=== PATIENT | female | born 1935 | race Caucasian/White ===

== ENCOUNTER 2024-08-06 15:35 | Emergency (ER) | payer MEDICARE, BC ==
[2024-08-06] MEDS ORDERED: SIMVASTATIN40 M1 PO (16:09)
[2024-08-06] MEDS ORDERED: CLOPIDOGREL PO (16:09)
[2024-08-06] MEDS ORDERED: PRILOSEC 20MG20 MG PO (16:09)
[2024-08-06] MEDS ORDERED: DONEPEZIL HCL10 MG PO (16:10)
[2024-08-06] MEDS ORDERED: MEMANTINE HCL5 MG PO (16:10)
[2024-08-06] MEDS ORDERED: ENTRESTO 24 MG1 EACH PO (16:11)
[2024-08-06] MEDS ORDERED: METOPROLOL SUCC25 M1 PO (16:12)
[2024-08-06] MEDS ORDERED: XARELTO20 MG PO (16:12)
[2024-08-06 16:16] LABS: BASO # 0.05 K/mm3 (0.02-0.10); EOS # 0.12 K/mm3 (0.04-0.40); EOS % 1.5 % (1.0-5.0); HEMATOCRIT 38.7 % (37.0-47.0); HEMOGLOBIN 11.8 g/dL (12.5-16.0); MEAN CELL VOLUME 86 fl (78-100); MEAN CORPUSCULAR HEMOGLOBIN 26 pg (27-31); MEAN CORPUSCULAR HGB CONC 31 g/dL (33-37); MEAN PLATELET VOLUME 10.4 fl (7.4-10.4); MONO # 0.83 K/mm3 (0.20-0.80); NEU # 5.58 K/mm3 (1.40-6.50); PLATELET COUNT 212 K/mm3 (130-400); RED BLOOD COUNT 4.48 M/mm3 (4.10-5.30); RED CELL DISTRIBUTION WIDTH 15.2 % (11.5-14.5)
[2024-08-06 16:23] LABS: ALBUMIN 3.4 g/dL (3.4-4.8)
[2024-08-06 16:25] LABS: CALCIUM 8.9 mg/dL (8.3-10.5)
[2024-08-06 16:26] LABS: TOTAL PROTEIN 5.9 g/dL (6.2-8.1)
[2024-08-06 16:28] LABS: TOTAL BILIRUBIN 0.5 mg/dL (0.2-1.2)
[2024-08-06 19:13] VITALS: BP 134/100
== END 2024-08-06 19:14 | disposition short-term general hospital (02) ==
LOC: ED 15:35
PROVIDERS: Nurse Practitioner
DX: I48.91 Unspecified atrial fibrillation (principal); I51.3 Intracardiac thrombosis, not elsewhere classified